=== PATIENT | male | born 1935 | race Caucasian/White ===

== ENCOUNTER 2018-09-18 17:59 | Observation (INO) | payer MEDICARE, OTHER ==
[~2018-09-18] VITALS: Ht 180.3 cm; Wt 92.0 kg
[2018-09-18] VITALS (8 sets, daily range): BP systolic 101–146; BP diastolic 73–89; PULSE 106–120; TEMP 97.5
[~2018-09-18 17:59] MED LIST: GARLIC SUPPLEM300 MG PO; K-DUR 2020 MEQ PO; LASIX 40MG TABL40 MG PO; LOPRESSOR 225 MG/TAB PO; PRILOSEC 20MG20 MG PO; PRINIVIL10 MG PO
[2018-09-18] MEDS ORDERED: PHARMASSURE GA500 MG PO (19:01)
[2018-09-18] MEDS ORDERED: ASPIRIN 81M81 MG/TA2 PO (19:02)
[2018-09-18] MEDS ORDERED: TYLENOL 325MG325 MG PO (19:02)
[2018-09-18] MEDS ORDERED: CRANBERRY500 M3 PO (19:04)
[2018-09-18] MEDS ORDERED: MASON NATURAL1200 MG PO (19:04)
[2018-09-18] MEDS ORDERED: MASON NATURAL S1 CAP PO (19:05)
[2018-09-18] MEDS ORDERED: CELEXA 20MG20 MG/TAB PO (19:12)
[2018-09-18] MEDS ORDERED: CARDURA 1MG1 MG PO (19:14)
[2018-09-18 22:25] LABS: CREATININE, serum 1.41 (0.66-1.25)
[2018-09-19 00:45] VITALS: BP 130/89; PULSE 110
--- NOTE | 2018-09-19 02:21 | NUR ---
Patient noted to pull IV out. Noted to be confused, but calm and compliant this far in the shift. Bed alarms on and patient frequently reoriented. Pain managed. Clear liquids currently and tolerating well. Continues to have sputum. No blood tinge noted thus far.
[2018-09-19 03:14] VITALS: BP 100/62; PULSE 102; TEMP 97.9
[2018-09-19 04:00] VITALS: BP 100/62; PULSE 102; TEMP 97.9
--- NOTE | 2018-09-19 04:03 | NUR ---
Attempted to apply telemetry per orders. Patient stated, "I don't want it." and proceeded to take it off. Unable to educate. Will attempt at a later time.
--- NOTE | 2018-09-19 06:57 | NUR ---
Report given to BRIANNA Miles.
[2018-09-19 08:00] VITALS: BP 116/76; PULSE 101; TEMP 98
--- NOTE | 2018-09-19 09:30 | NUR ---
Patient alert, confused. See assessment. Lungs clear in upper lobes, decreased in bases. No c/o difficulty swallowing. No other c/o at this time.
--- NOTE | 2018-09-19 10:06 | NUR ---
Discharge instructions reviewed with patient and family, verbalized understanding. Discharged via wheelchair to auto/home with family at 1005.
== END 2018-09-19 10:05 | disposition home or self-care (01) ==
LOC: SURG 17:59
PROVIDERS: ADMIT Surgery
DX: T18.198A Other foreign object in esophagus causing other injury, initial encounter (principal); K44.9 Diaphragmatic hernia without obstruction or gangrene; Z79.82 Long term (current) use of aspirin; Z79.899 Other long term (current) drug therapy; I10 Essential (primary) hypertension; Z95.2 Presence of prosthetic heart valve
CPT/HCPCS: G0378; J2370; J2704; J7120; Q9967